=== PATIENT | male | born 1990 | race Two or more races ===

== ENCOUNTER 2024-11-10 06:45 | Emergency (ER) | payer SELFPAY ==
[~2024-11-10] VITALS: Ht 175.3 cm; Wt 100.0 kg
[2024-11-10 06:56] VITALS: BP 122/87; PULSE 85; RESP 18; TEMP 98.4; O2SAT 99
--- NOTE | 2024-11-10 06:58 | ED.PDOC ---
History of Present Illness HPI Comments 34-year-old male brought in by EMS presents with a chief complaint of left knee pain x 1 hour. Patient states that he was getting out of bed when his "knee buckled" and began to hurt him. Patient has no deformities or swelling or redness to either knee. Patient is ambulatory and able to walk with steady gait. Patient has strong scent of alcohol. No other symptoms or modifying factors present at this time. Time Seen by MD: 06:51 Reviewed Notes: Medications, Allergies Allergies: Coded Allergies: NO KNOWN ALLERGIES (Unverified , 11/10/24) Information Source: Patient Mode of Arrival: EMS Severity: Moderate Timing: Hours Duration: Since onset Prehospital treatment: None Past Medical History PAST MEDICAL HISTORY: Denies Surgical History: Denies all surgeries Family History Family History: Reviewed,noncontributory to illness Social History Smoker: Non-Smoker Alcohol: Heavy Drugs: Denies Drug Use Lives In: Home Constitutional: denies: chills, diaphoresis, fatigue, fever, malaise, sweats, weakness, others EENTM: denies: blurred vision, double vision, ear bleeding, ear discharge, ear drainage, ear pain, ear ringing, eye pain, eye redness, hearing loss, mouth pain, mouth swelling, nasal discharge, nose bleeding, nose congestion, nose pain, photophobia, tearing, throat pain, throat swelling, voice changes, others Respiratory: denies: cough, hemoptysis, orthopnea, SOB at rest, shortness of breath, SOB with excertion, stridor, wheezing, others Cardiovascular: denies: chest pain, dizzy spells, diaphoresis, Dyspnea on exertion, edema, irregular heart beat, left arm pain, lightheadedness, palpitations, PND, syncope, others Gastrointestinal: denies: abdomen distended, abdominal pain, blood streaked bowels, constipated, diarrhea, dysphagia, difficulty swallowing, hematemesis, melena, nausea, poor appetite, poor fluid intake, rectal bleeding, rectal pain, vomiting, others Genitourinary: denies: burning, dysuria, flank pain, frequency, hematuria, incontinence, penile discharge, penile sore, pain, testicle pain, testicle swelling, urgency, others Neurological: denies: dizziness, fainting, headache, left sided numbness, left sided weakness, numbness, paresthesia, pre-existing deficit, right sided numbness, right sided weakness, seizure, speech problems, tingling, tremors, weakness, others Musculoskeletal: reports: muscle pain; denies: back pain, gout, joint pain, joint swelling, muscle stiffness, neck pain, others Integumetry: denies: bruises, change in color, change in hair/nails, dryness, laceration, lesions, lumps, rash, wounds, others Allergic/Immunocompromised: denies: Difficulty Healing, Frequent Infections, Hives, Itching, others Hematologic/Lymphatic: denies: anemia, blood clots, easy bleeding, easy bruising, swollen glands, others Endocrine: denies: excessive hunger, excessive sweating, excessive thirst, excessive urination, flushing, intolerance to cold, intolerance to heat, unexplained weight gain, unexplained weight loss, others Psychiatric: denies: anxiety, bipolar disorder, depression, hopeless, panic disorder, schizophrenia, sleepless, suicidal, others All Other Systems: Reviewed and Negative Physical Exam General Appearance: No Apparent Distress, Normal HEENT: Normal ENT Inspection, Pharynx Normal, TMs Normal Neck: Full Range of Motion, Non-Tender, Normal, Normal Inspection Respiratory: Chest Non-Tender, Lungs Clear, No Accessory Muscle Use, No Respiratory Distress, Normal Breath Sounds Cardiovascular: No Edema, No JVD, No Murmur, No Gallop, Normal Peripheral Pulses, Regular Rate/Rhythm Breast Exam: Deferred Gastrointestinal: No Organomegaly, Non Tender, No Pulsatile Mass, Normal Bowel Sounds, Soft Genitalia: Deferred Pelvic: Deferred Rectal: Deferred Extremities: No calf tenderness, Normal capillary refill, Normal inspection, Normal range of motion, Non-tender, No pedal edema Musculoskeletal : Apperance: Normal Neurologic: Alert, lining mechanic II-XII nml as Tested, No Motor Deficits, Normal Affect, Normal Mood, No Sensory Deficits Cerebellar Function: Normal Reflexes: Normal Skin: Dry, Normal Color, Warm Lymphatic: No Adenopathy Was a procedure done? Was a procedure done?: No Differential Dx Considerations may include: arthritis, sprain, strain, contusion, chronic pain, fracture, dislocation X-Ray, Labs, Meds, VS Vital Signs Date Time Temp Pulse Resp B/P (MAP) Pulse Ox O2 Delivery O2 Flow Rate FiO2 11/10/24 06:56 98.4 85 18 122/87 (99) 99 98.4 11/10/24 06:56 85 18 99 Room Air 11/10/24 06:56 98.4 85 18 122/87 (99) 99 Time of 1ST Reevaluation: 07:21 Reevaluation 1ST: Unchanged Patient Education/Counseling: Diagnosis, Treatment, Prognosis, Need For Follow Up Family Education/Counseling: No Family Present Comments The following tests were ordered, and results were reviewed by me: Left Knee X- Ray Additional Information was gathered from interviewing the following independent historians: 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 xray is unremarkable. due to his alcohol use, i will not prescribe NSAIDs. Departure 1 Departure Time of Disposition: 10:17 Impression: Primary Impression: Arthralgia of knee, left Additional Impression: Alcohol abuse Disposition: 01 HOME / SELF CARE / HOMELESS Condition: Good Additional Instructions: use warm compress, rest. knee brace as needed. stop drinking Discharged With: Self Critical Care Note Critical Care Time?: No Stability Stability form required: No I personally scribed for ANN MARIE MOSES MD ([email or web address]) on 11/10/24 at 06:58. Electronically submitted by Lul Castillo ([email or web address]). I personally scribed for ANN MARIE MOSES MD ([email or web address]) on 11/10/24 at 06:59. Electronically submitted by Lul Castillo ([email or web address]). ANN MARIE MOSES MD Nov 10, 2024 06:58
--- NOTE | 2024-11-10 07:51 | DVH ---
CLINICAL INDICATION: pain TECHNIQUE: AP, lateral, and oblique views of the left knee were performed. XY L KNEE 3V XRAY Comparison: None FINDINGS/IMPRESSION: : 1. No acute fracture or joint space narrowing. 2. No significant joint effusion.
== END 2024-11-10 10:46 | disposition home or self-care (01) ==
LOC: ER 06:45 → EDBD 06:45 → ER 10:46
DX: M25.562 Pain in left knee (principal); F10.10 Alcohol abuse, uncomplicated
CPT/HCPCS: 73562